=== PATIENT | female | born 1960 | race Caucasian/White ===

== ENCOUNTER → 2025-01-23 | Outpatient (CLI) | payer MEDICAID, SELFPAY ==
--- NOTE | 2025-01-23 14:00 | XR_ITS ---
Examination: Bone densitometry Date and time of exam:January 23, 2025 1409 hours INDICATIONS: Menopause age 52 levothyroxine for years diabetic vitamin D 2 years Technique: Lumbar spine and hip total bone mineralization values of an calculated. Peak reference and age match control results have been displayed. Findings: Lumbar spine total bone mineralization is1.245 gm/cm2. This is 1.8 standard deviations above peak reference. This is 3.5 standard deviations above age-matched controls. Hip total bone mineralization is 0.776 gm/cm2 This is 1.4 standard deviations below peak reference. This is 0.2 standard deviations below age-matched controls Impression: There is normal mineralization based on lumbar spine measurements. There is osteoporosis based on hip measurements
== END | disposition home or self-care (01) ==
PROVIDERS: Referring Provider Family Medicine; Visit Provider Family Medicine
DX: M81.0 Age-related osteoporosis without current pathological fracture (principal)
CPT/HCPCS: 77080